=== PATIENT | female | born 1965 | race Caucasian/White ===

== ENCOUNTER → 2018-07-02 | Outpatient (CLI) | payer OTHER | END | disposition home or self-care (01) | LOC: CFH 09:40 | PROVIDERS: ATTEND Nurse Practitioner Family | DX: I67.82 Cerebral ischemia (principal); R26.89 Other abnormalities of gait and mobility | CPT/HCPCS: 70551 ==

== ENCOUNTER → 2018-07-13 | Outpatient (CLI) | payer OTHER | END | disposition home or self-care (01) | LOC: RAD 08:09 | PROVIDERS: ATTEND Nurse Practitioner Family | DX: M48.02 Spinal stenosis, cervical region (principal); G35 Multiple sclerosis; R60.9 Edema, unspecified | CPT/HCPCS: 72141 ==

== ENCOUNTER 2018-08-09 07:16 | Day surgery (SDC) | payer OTHER ==
[~2018-08-09] VITALS: Ht 152.4 cm; Wt 48.1 kg
[2018-08-09 07:45] VITALS: BP 133/80
[2018-08-09] MEDS ORDERED: SODIUM CHLORIDE 0.9% 1,000 ML IV SCH (08:05)
[2018-08-09] MEDS ORDERED: LIDOCAINE-MPF 1%, 5ML ONE (08:58)
[2018-08-09 09:56] LABS: INTERNATIONAL NORMALIZED RATIO 1.01 (0.93-1.1); PROTHROMBIN TIME 10.7 Seconds (9.6-11.5)
[2018-08-09 10:08] LABS: GLUCOSE, CSF 52 mg/dL (40-80); TOTAL PROTEIN,CSF 35 mg/dL (15-45)
== END 2018-08-09 13:20 | disposition home or self-care (01) ==
LOC: OUT 07:16 → EDSTATUS 09:00 → OUT 13:20
PROVIDERS: ATTEND Psychiatry & Neurology Neurology
DX: G62.9 Polyneuropathy, unspecified (principal); Z98.84 Bariatric surgery status; D64.9 Anemia, unspecified; Z79.01 Long term (current) use of anticoagulants
CPT/HCPCS: 36415; 62270; 77003; 82040; 82042; 82784; 82945; 83873; 84157; 85610; 86618; 86645; 86695; 86696; 86762; 86777; 86778; 87070; 87205; 89051; J7030